=== PATIENT | female | born 1985 | race Caucasian/White ===

== ENCOUNTER → 2017-05-08 11:50 | Emergency (ER) | payer BC, OTHER ==
[~2017-05-08 11:50] MED LIST: Ketorolac INJ* 30 MG/ML 1 ML VIAL IV ONE; Ketorolac INJ* 30 MG/ML 1 ML VIAL ONE; NS 0.9% 1000 ML* 1,000 ML IV ONE
[2017-05-08 14:34] LABS: Hematocrit 38 % (35-47); Hemoglobin 13.2 g/dl (12.0-16.0); Mean Corpuscular HGB Conc 35 g/dl (31-36); Mean Corpuscular Hemoglobin 33 pg (27-31); Mean Corpuscular Volume 96 fL (80-97); Mean Platelet Volume 9 um3 (7.4-10.4); Red Cell Distribution Width 12 % (10.5-15)
[2017-05-08 14:56] LABS: ALT 17 U/L (7-52); AST 18 U/L (13-39); Alkaline Phosphatase 47 U/L (34-104); Anion Gap 8 mmol/L (2-11); BUN/Creatinine Ratio 8.6 (8-20); Blood Urea Nitrogen 7 mg/dL (6-24); CO2 Carbon Dioxide 25 mmol/L (22-32); Calcium 9.3 mg/dL (8.6-10.3); Chloride 103 mmol/L (101-111); EGFR African American 104.7 (>60); EGFR Non-African American 81.4 (>60); Globulin 3.1 g/dL (2-4); Glucose 86 mg/dL (70-100); Magnesium 1.8 mg/dL (1.9-2.7); Sodium 136 mmol/L (133-145); Total Protein 7.1 g/dL (6.4-8.9)
[2017-05-08 15:15] LABS: Manual Entry Verification HAN0055; Mono Internal Control QC Line Present
[2017-05-08 15:34] LABS: TSH (Thyroid Stimulating Horm) 2.28 mcIU/mL (0.34-5.60)
[2017-05-08 15:35] LABS: C Reactive Protein 1.16 mg/L (< 5.00)
[2017-05-08 15:50] LABS: Urine Bilirubin Negative (Negative); Urine Glucose Negative (Negative); Urine Nitrite Negative (Negative)
--- NOTE | 2017-05-08 16:58 | RAD ---
Indication: Left upper quadrant pain. Real-time sonography of the spleen was performed. The spleen is normal in size. No focal lesions are identified. IMPRESSION: Unremarkable spleen.
[2017-05-08 18:01] VITALS: BP 120/73
--- NOTE | 2017-05-09 21:19 | ED ---
Rosa Elena Luna Alok, scribed for Satish Jay MD on 05/08/17 at 1336 . Dizziness - HPI Summary HPI Summary: 31F presents to the ED with dizziness, fatigue, weakness, and a PICHARDO. Pt states that what began as RUQ abd pain 3-4 weeks ago transitioned into left sided abd pain which is still present and accompanied by nausea. Her left sided abd pain is described as dull and comes and goes. Pt also notes experiencing thrush 6 days ago as well as intermittent fevers ongoing since 4 days ago. Her PICHARDO is diffuse and ongoing since 3 days ago, constant yesterday and on and off today. Her dizziness worsens with ambulation and is described as a lightheadedness. Pt notes neck pain, generalized myalgia, forgetfulness/fogginess lately. Pt notes SOB on exertion yesterday and today. Pt denies rash. PMHx includes h/o lyme disease 20 years ago. - History Of Current Complaint Chief Complaint: EDDizziness Stated Complaint: DIZZY / SOB Time Seen by Provider: 05/08/17 13:24 Hx Obtained From: Patient Onset/Duration: Still Present Severity Initially: Moderate Severity Currently: Moderate Character: Lightheaded, Dizzy Aggravating Factor(s): Exertion, Headache Alleviating Factor(s): Nothing Associated Signs And Symptoms: Positive: Nausea, SOB, Unsteady Gait, Fever. Negative: Other: - Rash - Allergies/Home Medications Allergies/Adverse Reactions: Allergies Allergy/AdvReac Type Severity Reaction Status Date / Time Sulfamethoxazole Allergy Severe Hives Verified 05/08/17 11:51 w/Trimethoprim [From Bactrim] Sulfa Antibiotics Allergy Hives/Diff. Verified 05/08/17 11:51 Breathing/I tching Diphenhydramine AdvReac Intermediate ANXIETY/ Verified 05/08/17 11:51 [From Benadryl] RESTLESSNESS Home Medications: Home Medications clonazePAM TAB(*) [KlonoPIN TAB(*)] 1 mg PO BEDTIME PRN 05/08/17 [History Confirmed 05/08/17] traZODone TAB* [Desyrel TAB*] 100 mg PO BEDTIME 05/08/17 [History Confirmed ] PMH/Surg Hx/FS Hx/Imm Hx Endocrine/Hematology History: Denies: Hx Diabetes Respiratory History: Denies: Hx Asthma GI History: Denies: Hx Ulcer Psychiatric History: Reports: Hx Anxiety - Surgical History Surgery Procedure, Year, and Place: exploratory lap (poss uterine cyst but none found) Infectious Disease History: No Infectious Disease History: Reports: History Other Infectious Disease - Lyme at 11 yrs of age Denies: Hx Clostridium Difficile, Hx Hepatitis, Hx Human Immunodeficiency Virus (HIV), Hx of Known/Suspected MRSA, Hx Shingles, Hx Tuberculosis, Hx Known/ Suspected VRE, Hx Known/Suspected VRSA, Traveled Outside the [place] in Last 30 Days - Family History Known Family History: Positive: Other - no reported FMH of myofascial [id number] points Negative: Blood Disorder - no bleeding or clotting disorders - Social History Occupation: Employed Full-time Alcohol Use: Occasionally Substance Use Type: Reports: None Smoking Status (MU): Former Smoker Type: eCigarettes Amount Used/How Often: t Length of Time of Smoking/Using Tobacco: 1 year Have You Smoked in the Last Year: Yes Review of Systems Positive: Fever, Fatigue Positive: Shortness Of Breath Positive: Abdominal Pain, Nausea Positive: Myalgia, Other - neck pain Negative: Rash Neurological: Other - Dizziness Positive: Headache, Weakness All Other Systems Reviewed And Are Negative: Yes Physical Exam Triage Information Reviewed: Yes Vital Signs On Initial Exam: Initial Vitals Temp Pulse Resp BP Pulse Ox 98.7 F 81 18 105/65 100 05/08/17 11:51 05/08/17 11:51 05/08/17 11:51 05/08/17 11:51 05/08/17 11:51 Vital Signs Reviewed: Yes Appearance: Positive: Well-Appearing, No Pain Distress Skin: Positive: Warm, Dry, Pale Head/Face: Positive: Normal Head/Face Inspection Eyes: Positive: Normal ENT: Positive: Normal ENT inspection Neck: Positive: Supple, Nontender Respiratory/Lung Sounds: Positive: Clear to Auscultation, Breath Sounds Present Cardiovascular: Positive: RRR Abdomen Description: Positive: Nontender, Soft Bowel Sounds: Positive: Present Musculoskeletal: Positive: Normal Neurological: Positive: Normal Psychiatric: Positive: Normal, Affect/Mood Appropriate - Yani Coma Scale Coma Scale Total: 15 Diagnostics - Vital Signs Vital Signs Temp Pulse Resp BP Pulse Ox 05/08/17 11:51 98.7 F 81 18 105/65 100 - Laboratory Lab Results: Lab Results 05/08/17 05/08/17 05/08/17 Range/Units 14:21 14:21 14:21 WBC 5.0 (3.5-10.8) 10^3/ul RBC 4.00 (4.0-5.4) 10^6/ul Hgb 13.2 (12.0-16.0) g/dl Hct 38 (35-47) % MCV 96 (80-97) fL MCH 33 H (27-31) pg MCHC 35 (31-36) g/dl RDW 12 (10.5-15) % Plt Count 205 (150-450) 10^3/ul MPV 9 (7.4-10.4) um3 Neut % (Auto) 54.2 (38-83) % Lymph % (Auto) 30.6 (25-47) % [place] % (Auto) 8.7 (1-9) % Eos % (Auto) 5.9 (0-6) % Baso % (Auto) 0.6 (0-2) % Absolute Neuts (auto) 2.7 (1.5-7.7) 10^3/ul Absolute Lymphs (auto) 1.5 (1.0-4.8) 10^3/ul Absolute Monos (auto) 0.4 (0-0.8) 10^3/ul Absolute Eos (auto) 0.3 (0-0.6) 10^3/ul Absolute Basos (auto) 0 (0-0.2) 10^3/ul Absolute Nucleated RBC 0.01 10^3/ul Nucleated RBC % 0.1 Sodium 136 (133-145) mmol/L Potassium 4.0 (3.5-5.0) mmol/L Chloride 103 (101-111) mmol/L Carbon Dioxide 25 (22-32) mmol/L Anion Gap 8 (2-11) mmol/L BUN 7 (6-24) mg/dL Creatinine 0.81 (0.51-0.95) mg/dL Est GFR ( Amer) 104.7 (>60) Est GFR (Non-Af Amer) 81.4 (>60) BUN/Creatinine Ratio 8.6 (8-20) Glucose 86 (70-100) mg/dL Lactic Acid (0.5-2.0) mmol/L Calcium 9.3 (8.6-10.3) mg/dL Magnesium 1.8 L (1.9-2.7) mg/dL Total Bilirubin 0.60 (0.2-1.0) mg/dL AST 18 (13-39) U/L ALT 17 (7-52) U/L Alkaline Phosphatase 47 (34-104) U/L Troponin I 0.00 (<0.04) ng/mL C-Reactive Protein 1.16 (< 5.00) mg/L Total Protein 7.1 (6.4-8.9) g/dL Albumin 4.0 (3.2-5.2) g/dL Globulin 3.1 (2-4) g/dL Albumin/Globulin Ratio 1.3 (1-3) TSH 2.28 (0.34-5.60) mcIU/mL Beta HCG, Quant < 0.60 mIU/mL Urine Color Straw Urine Appearance Clear Urine pH 6 (5-9) Ur Specific [place] 1.005 L (1.010-1.030) Urine Protein Negative (Negative) Urine Ketones Negative (Negative) Urine Blood Negative (Negative) Urine Nitrate Negative (Negative) Urine Bilirubin Negative (Negative) Urine Urobilinogen Negative (Negative) Ur Leukocyte Esterase Negative (Negative) Urine Glucose Negative (Negative) Urine Ascorbic Acid * H (Negative) Monoscreen Positive H (Negative) 05/08/17 Range/Units 14:21 WBC (3.5-10.8) 10^3/ul RBC (4.0-5.4) 10^6/ul Hgb (12.0-16.0) g/dl Hct (35-47) % MCV (80-97) fL MCH (27-31) pg MCHC (31-36) g/dl RDW (10.5-15) % Plt Count (150-450) 10^3/ul MPV (7.4-10.4) um3 Neut % (Auto) (38-83) % Lymph % (Auto) (25-47) % [place] % (Auto) (1-9) % Eos % (Auto) (0-6) % Baso % (Auto) (0-2) % Absolute Neuts (auto) (1.5-7.7) 10^3/ul Absolute Lymphs (auto) (1.0-4.8) 10^3/ul Absolute Monos (auto) (0-0.8) 10^3/ul Absolute Eos (auto) (0-0.6) 10^3/ul Absolute Basos (auto) (0-0.2) 10^3/ul Absolute Nucleated RBC 10^3/ul Nucleated RBC % Sodium (133-145) mmol/L Potassium (3.5-5.0) mmol/L Chloride (101-111) mmol/L Carbon Dioxide (22-32) mmol/L Anion Gap (2-11) mmol/L BUN (6-24) mg/dL Creatinine (0.51-0.95) mg/dL Est GFR ( Amer) (>60) Est GFR (Non-Af Amer) (>60) BUN/Creatinine Ratio (8-20) Glucose (70-100) mg/dL Lactic Acid 0.8 (0.5-2.0) mmol/L Calcium (8.6-10.3) mg/dL Magnesium (1.9-2.7) mg/dL Total Bilirubin (0.2-1.0) mg/dL AST (13-39) U/L ALT (7-52) U/L Alkaline Phosphatase (34-104) U/L Troponin I (<0.04) ng/mL C-Reactive Protein (< 5.00) mg/L Total Protein (6.4-8.9) g/dL Albumin (3.2-5.2) g/dL Globulin (2-4) g/dL Albumin/Globulin Ratio (1-3) TSH (0.34-5.60) mcIU/mL Beta HCG, Quant mIU/mL Urine Color Urine Appearance Urine pH (5-9) Ur Specific [place] (1.010-1.030) Urine Protein (Negative) Urine Ketones (Negative) Urine Blood (Negative) Urine Nitrate (Negative) Urine Bilirubin (Negative) Urine Urobilinogen (Negative) Ur Leukocyte Esterase (Negative) Urine Glucose (Negative) Urine Ascorbic Acid (Negative) Monoscreen (Negative) Result Diagrams: 05/08/17 14:21 05/08/17 14:21 Lab Statement: Any lab studies that have been ordered have been reviewed, and results considered in the medical decision making process. - EKG 1200 Cardiac Rate: Bradycardia - 56 bpm EKG Rhythm: Sinus Bradycardia - Additional Comments Diagnostic Additional Comments: Spleen US - IMPRESSION: Unremarkable Spleen Dizzy Course/Dx - Course Course Of Treatment: Ms. Walsh presented with several C/O over the last 2-3 weeks. Her W/U is negative aside from a positive Monospot. She has had not pharyngeal C/O and has no lymphadenopathy at this time. A [facility] PCR panel has been sent and I will treat her symptomatically for now. - Diagnoses Provider Diagnoses: Mononucleosis Discharge - Discharge Plan Condition: Stable Disposition: HOME Patient Education Materials: Mononucleosis (ED) Forms: *Work Release Referrals: Evy Hoyt MD [Primary Care Provider] - Additional Instructions: Please follow up with your primary care provider The documentation as recorded by the Rosa Elena gallagher Alok accurately reflects the service I personally performed and the decisions made by me, Satish Jay MD.
[2017-05-11 20:43] LABS: B garinii/B afzelii PCR Negative (Negative); B mayonii PCR Negative (Negative)
[2017-05-12 01:28] LABS: B. miyamotoi PCR, B Negative (Negative); Babesia divergens/MO-1 Negative (Negative); Babesia ducani Negative (Negative); Ehrlichia ewingii/canis Negative (Negative)
== END | disposition home or self-care (01) ==
LOC: ED 11:50
DX: B27.90 Infectious mononucleosis, unspecified without complication (principal); R42 Dizziness and giddiness; R11.0 Nausea; R06.02 Shortness of breath; R50.9 Fever, unspecified; R53.83 Other fatigue; Z87.891 Personal history of nicotine dependence; R51 Headache
CPT/HCPCS: 36415; 76705; 80053; 81003; 83605; 83735; 84443; 84484; 84702; 85025; 86140; 86308; 86618; 87476; 87798; 93005; 96374; 99283; J1885

== ENCOUNTER 2017-10-21 10:26 | Emergency (ER) | payer BC ==
[2017-10-21 10:43] VITALS: BP 134/89
--- NOTE | 2017-10-21 11:40 | UC ---
Throat Pain/Nasal Dustin HPI - HPI Summary HPI Summary: Patient presents with an unremarkable past medical history. She presents with complaints of one day onset fever, T-max reported to be 103 at home, sore throat , generalized fatigue and malaise. She denies any chest pain, abdominal pain, nausea, vomiting, diarrhea, joint pain or rashes. She works at [employer] and dies have contact with patient who are ill. - History of Current Complaint Chief Complaint: UCGeneralIllness Stated Complaint: FEVER, SORE THROAT Time Seen by Provider: 10/21/17 11:12 Hx Obtained From: Patient Hx Last Menstrual Period: IUD Onset/Duration: Sudden Onset, Lasting Days Cough: Nonproductive Associated Signs & Symptoms: Positive: Nasal Discharge, Fever - Epiglottits Risk Factors Epiglottis Risk Factors: Negative - Allergies/Home Medications Allergies/Adverse Reactions: Allergies Allergy/AdvReac Type Severity Reaction Status Date / Time Sulfamethoxazole Allergy Severe Hives Verified 10/21/17 10:44 w/Trimethoprim [From Bactrim] Sulfa Antibiotics Allergy Hives/Diff. Verified 10/21/17 10:44 Breathing/I tching Tramadol Allergy Hallucinati Verified 10/21/17 10:44 ons Diphenhydramine AdvReac Intermediate ANXIETY/ Verified 10/21/17 10:44 [From Benadryl] RESTLESSNESS Home Medications: Home Medications Atovaquone/Proguanil (NF) [Malarone (NF)] 1 tab PO BID 10/21/17 [History Confirmed 10/21/17] Clonidine HCl [Catapres 0.1 MG TAB] 1 tab PO BEDTIME PRN 10/21/17 [History Confirmed 10/21/17] Doxycycline Hyclate [Morgidox [id number]] 100 mg PO BID 10/21/17 [History Confirmed 10/21/17] Magnesium Oxide 1 tab PO BID 10/21/17 [History Confirmed 10/21/17] Metoclopramide TAB* [Reglan TAB*] 10 mg PO DAILY 10/21/17 [History Confirmed ] Ranitidine HCl [Zantac 150 Maximum Streng] 150 mg PO DAILY 10/21/17 [History Confirmed 10/21/17] Topiramate TAB(*) [Topamax 25 MG tab] 25 mg PO DAILY 12/28/17 [History Confirmed 10/21/17] PMH/Surg Hx/FS Hx/Imm Hx Previously Healthy: Yes Psychological History: Depression - Surgical History Surgical History: Yes Surgery Procedure, Year, and Place: Exlap for oviarian cyst. - Family History Known Family History: Positive: Cardiac Disease, Hypertension, Other Negative: Blood Disorder - no bleeding or clotting disorders Family History: stroke - Social History Occupation: Employed Full-time Lives: Alone Alcohol Use: Occasionally Substance Use Type: None Smoking Status (MU): Never Smoked Tobacco Type: eCigarettes Amount Used/How Often: t Length of Time of Smoking/Using Tobacco: 1 year Have You Smoked in the Last Year: Yes When Did the Patient Quit Smoking/Using Tobacco: 02/18/15 - Immunization History Most Recent Influenza Vaccination: Fall 2016 Most Recent Tetanus Shot: 2012 Most Recent Pneumonia Vaccination: na Review of Systems Constitutional: Fever, Fatigue Skin: Negative Eyes: Negative ENT: Sore Throat Respiratory: Negative Cardiovascular: Negative Gastrointestinal: Negative Genitourinary: Negative Motor: Negative Neurovascular: Negative Musculoskeletal: Arthralgia, Myalgia Neurological: Negative Psychological: Negative Is Patient Immunocompromised?: No All Other Systems Reviewed And Are Negative: Yes Physical Exam Triage Information Reviewed: Yes Appearance: Ill-Appearing Vital Signs: Initial Vital Signs Temp 98.6 F 10/21/17 10:40 Pulse 92 10/21/17 10:40 Resp 18 10/21/17 10:40 BP 134/89 10/21/17 10:40 Pulse Ox 100 10/21/17 10:40 Vital Signs Reviewed: Yes Eye Exam: Normal ENT: Positive: Pharyngeal erythema Neck exam: Normal Neck: Positive: 1 Respiratory: Positive: Normal breath sounds, No respiratory distress, No accessory muscle use Cardiovascular Exam: Normal Cardiovascular: Positive: RRR, No Murmur Abdominal Exam: Normal Musculoskeletal Exam: Normal Skin Exam: Normal Throat Pain/Nasal Course/Dx - Course Course Of Treatment: Patient prersents with complaints of fever, sore throat. Raped strep and influenza were negative. And currently the patient has normal vital signs, and nontoxic appearance. She was taken out of work and will be treated conservativly. - Differential Dx/Diagnosis Differential Diagnosis/HQI/PQRI: URI, Other - viral syndrome Provider Diagnoses: viral syndrome. uri Discharge - Discharge Plan Condition: Stable Disposition: HOME Patient Education Materials: Viral Syndrome (ED) Forms: *Work Release Referrals: Ayde Kamara MD [Primary Care Provider] -
== END 2017-10-21 11:51 | disposition home or self-care (01) ==
LOC: UCEAST 10:26
DX: J06.9 Acute upper respiratory infection, unspecified (principal); B34.9 Viral infection, unspecified; Z88.5 Allergy status to narcotic agent; Z88.2 Allergy status to sulfonamides; Z88.8 Allergy status to other drugs, medicaments and biological substances; Z87.891 Personal history of nicotine dependence
CPT/HCPCS: 87502; 87651; 99211; G0463

== ENCOUNTER 2017-12-19 11:42 | Emergency (ER) | payer OTHER, BC ==
[2017-12-19 12:40] VITALS: BP 127/65
--- NOTE | 2017-12-19 14:27 | UC ---
UC General HPI - HPI Summary HPI Summary: Has been on rocephin since 11/29 intravenously for treatment of Lyme disease. Developed loose stools about 6 days ago, up to 6 stools per day no blood, no fever, developed low abdominal cramping in the past 2 days. Took imodium tomorrow with some response, none today - History of Current Complaint Chief Complaint: UCGI Stated Complaint: DIARRHEA *2WEEKS Time Seen by Provider: 12/19/17 14:16 Hx Obtained From: Patient Hx Last Menstrual Period: unknown Onset/Duration: Gradual Onset, Lasting Days Timing: Intermittent Episodes Lasting: - minutes. Onset Severity: Moderate Pain Intensity: 3 Associated Signs & Symptoms: Positive: Abdominal Pain - crapming - Allergy/Home Medications Allergies/Adverse Reactions: Allergies Allergy/AdvReac Type Severity Reaction Status Date / Time diphenhydramine Allergy Anxiety Verified 12/19/17 12:23 [From Benadryl] Sulfa (Sulfonamide Allergy Hives/Diff. Verified 12/19/17 12:23 Antibiotics) Breathing/I tching sulfamethoxazole Allergy Hives Verified 12/19/17 12:23 [From Bactrim] tramadol Allergy Hallucinati Verified 12/19/17 12:23 ons trimethoprim [From Bactrim] Allergy Hives Verified 12/19/17 12:23 chlorhexidine AdvReac Itching Verified 12/19/17 12:32 Home Medications: Home Medications Fish Oil/Borage/Flax/Om3,6,9 1 [[place] 3-6-9 1,200 mg Softgel] 2,400 mg PO DAILY 12/19/17 [History Confirmed 12/19/17] Levonorgestrel (Iud) [Mirena IUD] 20 mcg IU ONCE 12/19/17 [History Confirmed ] Multivitamin [Multivitamins] 1 cap PO DAILY 12/19/17 [History Confirmed 12/19/17 ] Ondansetron HCl [Zofran 4 MG TAB] 4 mg PO Q4H PRN 12/19/17 [History Confirmed ] SUMAtriptan succinate [Imitrex] 100 mg PO SEE INSTRUCTIONS PRN 12/19/17 [ History Confirmed 12/19/17] Vitamin A/Vit C/Zinc/Propolis [Zinc 15 mg Lozenges] 15 mg PO DAILY 12/19/17 [ History Confirmed 12/19/17] Vitamin B Complex CAP* [B Complex CAP*] 1 cap PO DAILY 12/19/17 [History Confirmed 12/19/17] Vitamin E 300 unit PO DAILY 12/19/17 [History Confirmed 12/19/17] cefTRIAXone VIAL(*) [Rocephin VIAL(*)] 2 gm IV Q24H 12/19/17 [History Confirmed 12/19/17] hydrOXYzine HCL TAB* [Atarax 25 MG TAB*] 30 mg PO QID PRN 12/19/17 [History Confirmed 12/19/17] PMH/Surg Hx/FS Hx/Imm Hx Previously Healthy: No - Lyme disease being treated since July 2017 Psychological History: Anxiety, Depression - Surgical History Surgical History: Yes Surgery Procedure, Year, and Place: Exlap for oviarian cyst. - Family History Known Family History: Positive: Cardiac Disease, Hypertension, Other Negative: Blood Disorder - no bleeding or clotting disorders Family History: stroke - Social History Occupation: Employed Full-time - currently partially disabled, working supervisor finishing department. ICU nurse, now doing EMS work Alcohol Use: Occasionally Substance Use Type: None Smoking Status (MU): Former Smoker Type: eCigarettes Amount Used/How Often: t Length of Time of Smoking/Using Tobacco: 1 year Have You Smoked in the Last Year: Yes When Did the Patient Quit Smoking/Using Tobacco: 02/18/15 - Immunization History Most Recent Influenza Vaccination: Fall 2016 Most Recent Tetanus Shot: 2012 Most Recent Pneumonia Vaccination: na Review of Systems Constitutional: Fatigue Skin: Negative Eyes: Negative ENT: Negative Respiratory: Negative Cardiovascular: Negative Gastrointestinal: Diarrhea Genitourinary: Negative Motor: Negative Neurovascular: Negative Musculoskeletal: Arthralgia - knees Neurological: Negative Psychological: Negative Is Patient Immunocompromised?: No All Other Systems Reviewed And Are Negative: Yes Physical Exam Triage Information Reviewed: Yes Appearance: Ill-Appearing - looks pale and mildly unwell Vital Signs: Initial Vital Signs Temp 99.2 F 12/19/17 12:33 Pulse 73 12/19/17 12:33 Resp 20 12/19/17 12:33 BP 127/65 12/19/17 12:33 Pulse Ox 100 12/19/17 12:33 Eyes: Positive: Conjunctiva Clear ENT: Positive: Pharynx normal Neck: Positive: Supple, Nontender, No Lymphadenopathy Respiratory: Positive: Lungs clear, Normal breath sounds Cardiovascular: Positive: RRR, No Murmur Abdomen Description: Positive: Nontender, No Organomegaly, Soft Bowel Sounds: Positive: Present Musculoskeletal Exam: Normal Neurological Exam: Normal Psychological Exam: Normal Skin Exam: Normal Course/Dx - Course Course Of Treatment: imodium to be used for loose stool pending results of samples. Given number of meds she is taking, suggested holding off on empiric therapy - Differential Dx - Multi-Symptom Provider Diagnoses: diarrhea, high risk for C. diff. Discharge - Discharge Plan Condition: Stable Disposition: HOME Patient Education Materials: Acute Diarrhea (ED) Referrals: Ayde Kamara MD [Primary Care Provider] - Additional Instructions: The results of the C. diff test should be available by tomorrow afternoon. You will be called if positive. Continue use of imodium to the number of stools, and ensure high intake of fluids. Avoid high fiber and fatty foods which might worsen your symptoms.
--- NOTE | 2017-12-20 14:25 | ED ---
Progress - Progress Note Progress Note: The patient should go to the hospital ER for full labs, and evaluation, and further consultation including ID since she is on Rocephin for LYme and now has c diff colitis, and on many medication and other medical conditions. Course/Dx - Course Course Of Treatment: imodium to be used for loose stool pending results of samples. Given number of meds she is taking, suggested holding off on empiric therapy
== END 2017-12-19 15:05 | disposition home or self-care (01) ==
LOC: UCCORT 11:42
DX: A04.72 Enterocolitis due to Clostridium difficile, not specified as recurrent (principal); A69.20 Lyme disease, unspecified; Z88.1 Allergy status to other antibiotic agents; Z88.8 Allergy status to other drugs, medicaments and biological substances; F41.8 Other specified anxiety disorders; Z87.891 Personal history of nicotine dependence
CPT/HCPCS: 87045; 87046; 87328; 87329; 87493; 87899; 99212; G0463

== ENCOUNTER 2019-01-11 18:40 | Emergency (ER) | payer BC ==
[2019-01-11 19:17] VITALS: BP 131/70
--- NOTE | 2019-01-11 19:56 | UC ---
Throat Pain/Nasal Dustin HPI - HPI Summary HPI Summary: 33 yo female with sore throat/fatigue/severe myalgias and arthralgis x 24 hours mild runny nose and cough Had influenza A about 2 mos ago no CP or SOB - History of Current Complaint Chief Complaint: UCGeneralIllness Stated Complaint: ST,FATIGUE,WEAKNESS Time Seen by Provider: 01/11/19 19:16 Hx Obtained From: Patient Hx Last Menstrual Period: 12/31/18 Onset/Duration: Gradual Onset, Lasting Hours Severity: Moderate Pain Intensity: 6 Pain Scale Used: 0-10 Numeric Cough: Nonproductive - Epiglottits Risk Factors Epiglottis Risk Factors: Negative - Allergies/Home Medications Allergies/Adverse Reactions: Allergies Allergy/AdvReac Type Severity Reaction Status Date / Time Sulfa (Sulfonamide Allergy Severe Hives/Diff. Verified 01/11/19 19:20 Antibiotics) Breathing/I tching sulfamethoxazole Allergy Severe Hives Verified 01/11/19 19:20 [From Bactrim] trimethoprim [From Bactrim] Allergy Severe Hives Verified 01/11/19 19:20 diphenhydramine AdvReac Intermediate Anxiety Verified 01/11/19 19:20 [From Benadryl] chlorhexidine AdvReac Mild Itching Verified 01/11/19 19:20 trazodone AdvReac auditory Verified 01/11/19 19:20 hallucinations Home Medications: Home Medications Vitamin TAB* 1 tab PO DAILY 01/11/19 [History Confirmed 01/11/19] metFORMIN* [Glucophage 500 MG TAB *] 500 mg PO BID 01/11/19 [History Confirmed 01/11/19] PMH/Surg Hx/FS Hx/Imm Hx - Additional Past Medical History Additional PMH: hx MONO, hx LYME DISEASE Previously Healthy: Yes Cardiovascular History: Hypertension - Surgical History Surgical History: Yes Surgery Procedure, Year, and Place: lap for oviarian cyst. - Family History Known Family History: Positive: Cardiac Disease, Hypertension, Other Negative: Blood Disorder - no bleeding or clotting disorders Family History: stroke - Social History Alcohol Use: Occasionally Substance Use Type: None Smoking Status (MU): Former Smoker Type: eCigarettes Amount Used/How Often: t Length of Time of Smoking/Using Tobacco: 1 year Have You Smoked in the Last Year: Yes When Did the Patient Quit Smoking/Using Tobacco: 02/18/15 - Immunization History Most Recent Influenza Vaccination: Fall 2016 Most Recent Tetanus Shot: 2012 Most Recent Pneumonia Vaccination: na Review of Systems All Other Systems Reviewed And Are Negative: Yes Constitutional: Positive: Fever, Chills, Fatigue Skin: Positive: Negative Eyes: Positive: Negative ENT: Positive: Sore Throat, Nasal Discharge, Sinus Congestion Respiratory: Positive: Cough Cardiovascular: Positive: Negative Gastrointestinal: Positive: Nausea Genitourinary: Positive: Negative Motor: Positive: Negative Neurovascular: Positive: Negative Musculoskeletal: Positive: Negative Neurological: Positive: Negative Psychological: Positive: Negative Physical Exam Triage Information Reviewed: Yes Appearance: Well-Appearing, No Pain Distress, Well-Nourished Vital Signs: Initial Vital Signs Temp 98.6 F 01/11/19 19:13 Pulse 83 01/11/19 19:13 Resp 16 01/11/19 19:13 BP 131/70 01/11/19 19:13 Pulse Ox 100 01/11/19 19:13 Vital Signs Reviewed: Yes Eyes: Positive: Conjunctiva Clear ENT: Positive: Hearing grossly normal, Pharyngeal erythema, Nasal congestion, Nasal drainage, Tonsillar swelling, Uvula midline. Negative: Tonsillar exudate , Trismus, Muffled voice, Hoarse voice, Sinus tenderness Neck: Positive: Supple, Nontender, Enlarged Nodes @ - ant and post adenopathy Respiratory: Positive: Lungs clear, Normal breath sounds, No respiratory distress, No accessory muscle use Cardiovascular: Positive: RRR, No Murmur Musculoskeletal: Positive: ROM Intact, No Edema Neurological: Positive: Alert Psychological Exam: Normal Skin Exam: Normal Throat Pain/Nasal Course/Dx - Course Course Of Treatment: strep (-) influenza (-) - Differential Dx/Diagnosis Provider Diagnosis: Viral syndrome Discharge - Sign-Out/Discharge Documenting (check all that apply): Patient Departure All imaging exams completed and their final reports reviewed: No Studies - Discharge Plan Condition: Stable Disposition: HOME Patient Education Materials: Viral Syndrome (ED) Forms: *School Release Referrals: Sierra Osborne NP [Primary Care Provider] - 2 Days Additional Instructions: rest fluids tylenol or advil recheck for new or worsening symptoms - Billing Disposition and Condition Condition: STABLE Disposition: Home
[2019-01-11 19:57] LABS: Influenza A Molecular NEGATIVE (Negative); Influenza B Molecular NEGATIVE (Negative)
== END 2019-01-11 20:08 | disposition home or self-care (01) ==
LOC: UCCORT 18:40
DX: B34.9 Viral infection, unspecified (principal); Z88.2 Allergy status to sulfonamides; Z88.1 Allergy status to other antibiotic agents; Z88.8 Allergy status to other drugs, medicaments and biological substances; I10 Essential (primary) hypertension; Z87.891 Personal history of nicotine dependence
CPT/HCPCS: 87651; 99211; G0463

== ENCOUNTER 2019-07-19 01:31 | Emergency (ER) | payer BC ==
[2019-07-19] MEDS ORDERED: NS 0.9% 1000 ML** 1,000 ML IV ONE (02:05)
--- NOTE | 2019-07-19 02:05 | ED ---
Back Pain - HPI Summary HPI Summary: 34 year old F presenting to [facility] accompanied by complains of lower back pain rated 9/10 in severity radiating to the front of her abdomen that started while patient was at work yesterday at 20:00. Patient states she feels tightness in her abdomen. Patient states she has never felt tightness in her abdomen or back pain. Patient reports nausea. Denies fever, vomiting, diarrhea, dysuria, vaginal discharge, vaginal bleeding. Symptoms aggravated by nothing. Symptoms alleviated by nothing. Patient has treated the pain with Tylenol without relief. Patient states she is 24 weeks . Patient states she had an ultrasound done when she was 4-5 weeks . Patient states she is due in November 04, 2019. LNMP 01/26/19. /A1. Patient states she called her serging machine operator yesterday who referred patient to ED if symptoms worsen. - History of Current Complaint Chief Complaint: EDOBProblems Stated Complaint: 24 WEEKS , PAIN PER PT Time Seen by Provider: 07/19/19 01:56 Hx Obtained From: Patient Hx Last Menstrual Period: 01/26/19 Onset/Duration: Lasting Hours - 6, Still Present Onset/Duration: Started Hours Ago - 6, Still Present Severity Currently: Severe Pain Intensity: 9 Pain Scale Used: 0-10 Numeric Aggravating Symptom(s): Nothing Alleviating Symptom(s): Nothing Associated Signs And Symptoms: Positive: Negative - fever, vomiting, diarrhea, dysuria, vaginal discharge, vaginal bleeding, Other - nausea - Allergies/Home Medications Allergies/Adverse Reactions: Allergies Allergy/AdvReac Type Severity Reaction Status Date / Time Sulfa (Sulfonamide Allergy Severe Hives/Diff. Verified 07/19/19 01:35 Antibiotics) Breathing/I tching sulfamethoxazole Allergy Severe Hives Verified 07/19/19 01:35 [From Bactrim] trimethoprim [From Bactrim] Allergy Severe Hives Verified 07/19/19 01:35 diphenhydramine AdvReac Intermediate Anxiety Verified 07/19/19 01:35 [From Benadryl] trazodone AdvReac auditory Verified 07/19/19 01:35 hallucinations Home Medications: Home Medications Aspirin [Aspirin EC] 81 mg PO DAILY 07/19/19 [History Confirmed 07/19/19] Cetirizine HCl [Zyrtec] 10 mg PO DAILY 07/19/19 [History Confirmed 07/19/19] Docusate Sodium [Colace] 100 mg PO DAILY 07/19/19 [History Confirmed 07/19/19] PMH/Surg Hx/FS Hx/Imm Hx Endocrine/Hematology History: Denies: Hx Diabetes Cardiovascular History: Denies: Hx Coronary Artery Disease, Hx Hypertension Respiratory History: Denies: Hx Asthma GI History: Denies: Hx Ulcer Psychiatric History: Reports: Hx Anxiety - Surgical History Surgery Procedure, Year, and Place: lap for oviarian cyst. Infectious Disease History: No Infectious Disease History: Reports: History Other Infectious Disease - Lyme at 11 yrs of age Denies: Hx Clostridium Difficile, Hx Hepatitis, Hx Human Immunodeficiency Virus (HIV), Hx of Known/Suspected MRSA, Hx Shingles, Hx Tuberculosis, Hx Known/ Suspected VRE, Hx Known/Suspected VRSA, Traveled Outside the [place] in Last 30 Days - Family History Known Family History: Positive: Cardiac Disease, Hypertension, Other Negative: Blood Disorder - no bleeding or clotting disorders Family History: stroke - Social History Alcohol Use: None Hx Substance Use: No Substance Use Type: Reports: None Hx Tobacco Use: Yes Smoking Status (MU): Former Smoker Type: eCigarettes Amount Used/How Often: t Length of Time of Smoking/Using Tobacco: 1 year Have You Smoked in the Last Year: Yes Review of Systems - ROS Summary Review of Systems Summary: Home Medications Medication Instructions Recorded Confirmed Type Vitamin TAB* 1 tab PO DAILY 01/11/19 07/19/19 History Aspirin [Aspirin EC] 81 mg PO DAILY 07/19/19 07/19/19 History Cetirizine HCl [Zyrtec] 10 mg PO DAILY 07/19/19 07/19/19 History Docusate Sodium [Colace] 100 mg PO DAILY 07/19/19 07/19/19 History Negative: Fever Positive: Nausea. Negative: Vomiting, Diarrhea Negative: dysuria, discharge, other - vaginal bleeding Positive: Other - low back pain All Other Systems Reviewed And Are Negative: Yes Physical Exam - Summary Physical Exam Summary: General: Well-developed, Well-nourished FEMALE. No acute distress. HEENT: Normocephalic, Atraumatic. Eyes: Conjuctiva normal, PERRL. Ears: TMs within normal limits. Nares: (-) discharge, (-) erythema. Oropharynx: Clear, mucous membranes moist, (-) exudates. Neck: Soft, FROM, (-) lymphadenopathy, (-) thyromegaly, (-) JVD. Cardiovascular: Normal sinus rhythm, (-) murmur. Lungs: Clear to auscultation bilaterally (-) wheezes, (-) rales, (-) rhonchi. Abdomen: gravid abdomen, fundus is above her umbilicus, abdomen is soft and non- tender Back: (-) CVA tenderness, back is non-tender Extremities: No edema. Skin: Warm, dry, (-) rash. Neuro: Alert and oriented x3, no focal deficits. Psychiatric: Mood normal, affect normal. Triage Information Reviewed: Yes Vital Signs On Initial Exam: Initial Vitals Temp Pulse Resp BP Pulse Ox 98.7 F 95 16 157/86 97 07/19/19 01:33 07/19/19 01:33 07/19/19 01:33 07/19/19 01:33 07/19/19 01:33 Vital Signs Reviewed: Yes Diagnostics - Vital Signs Vital Signs Temp Pulse Resp BP Pulse Ox 07/19/19 01:33 98.7 F 95 16 157/86 97 - Laboratory Result Diagrams: 07/19/19 02:15 07/19/19 02:15 Lab Statement: Any lab studies that have been ordered have been reviewed, and results considered in the medical decision making process. Re-Evaluation - Re-Evaluation First Eval Re-Evaluation Time: 02:30 Comment: heart rate 150 BPM per OB nurse Second Eval Re-Evaluation Time: 02:37 Comment: aware of lactic acid 2.2 Third Eval Re-Evaluation Time: 03:23 Comment: I have discussed results with the patient and symptoms have resolved. Discussed symptoms that warrant immediate return to ED. Fourth Eval Re-Evaluation Time: 03:50 Comment: patient feels uncomfortable being discharged home Fifth Eval Re-Evaluation Time: 04:40 Comment: OB nurse in ED to monitor patient Back Pain Course/Dx - Course Course Of Treatment: 34 year old F presenting to [facility] accompanied by complains of lower back pain rated 9/10 in severity radiating to the front of her abdomen that started while patient was at work yesterday at 20:00. Patient states she feels tightness in her abdomen. Patient reports nausea. Denies fever , vomiting, diarrhea, dysuria, vaginal discharge, vaginal bleeding.Patient states she is 24 weeks . /A1. Physical exam findings: gravid abdomen, fundus is above her umbilicus, abdomen is soft and non-tender, back is non-tender, no edema. Bloodwork results with no significant abnormalities except for RBC 3.45, Hgb 10.6, Hct 31, creatinine 0.44, lactic acid 2.2, calcium 8.4. Urinalysis results with no significant abnormalities except for specific gravity 1.001. In the ED course, the patient was given normal saline fluids 1 L IV and acetaminophen [address] Correa, OBGYN, states it sounds like mechanical low back pain and not contractions. He states that patient can be discharge home and follow up with OBGYN. The patient will be discharged home with follow up from her OBGYN in 3 days. Patient was instructed to return to Emergency Department for new or worsening symptoms. Patient understands and is agreeable to this plan. - Diagnoses Provider Diagnoses: Low back pain - Provider Notifications Discussed Care Of Patient With: René Correa Time Discussed With Above Provider: 03:20 Instructed by Provider To: Other - Dr. Correa OBGYN, states it sounds like mechanical low back pain and not contractions. He states that patient can be discharge home and follow up with OBGYN. Spoke with OBGYN at 04:18 who state that they will send OBGYN nurse down to ED to monitor patient. Discharge ED - Sign-Out/Discharge Documenting (check all that apply): Patient Departure - Discharge Patient Received Moderate/Deep Sedation with Procedure: No - Discharge Plan Condition: Stable Disposition: HOME Patient Education Materials: Back Pain (ED) Forms: *Work Release Referrals: [facility] [Provider Group] - 3 Days Additional Instructions: Please follow up with your OBGYN within 3 days. Please return to Emergency Department for any new or worsening symptoms. - Billing Disposition and Condition Condition: STABLE Disposition: Home - Attestation Statements Document Initiated by Scribe: Yes Documenting Scribe: Evon Santacruz Provider For Whom Scribe is Documenting (Include Credential): Poly Benitez MD Scribe Attestation: IEvon, scribed for Poly Benitez MD on 07/19/19 at 0557. Scribe Documentation Reviewed: Yes Provider Attestation: The documentation as recorded by the scribe, Evon Santacruz accurately reflects the service I personally performed and the decisions made by me, Poly Benitez MD Status of Scribe Document: Viewed
[2019-07-19 02:13] LABS: Urine Appearance Clear; Urine Bilirubin Negative (Negative); Urine Blood Negative (Negative); Urine Color Colorless; Urine Glucose Negative (Negative); Urine Ketones Negative (Negative); Urine Nitrite Negative (Negative); Urine Protein Negative (Negative); Urine Specific Gravity 1.001 (1.010-1.030); Urine Urobilinogen Negative (Negative)
[2019-07-19 02:23] LABS: ABS Eosinophils 0.1 10^3/ul (0-0.6); ABS Lymphocytes 1.3 10^3/ul (1.0-4.8); ABS Monocytes 0.6 10^3/ul (0-0.8); ABS Neutrophils 6.1 10^3/ul (1.5-7.7); Eosinophil % 1.5 %; Hematocrit 31 % (35-47); Hemoglobin 10.6 g/dL (12.0-16.0); Mean Corpuscular HGB Conc 34 g/dL (31-36); Mean Corpuscular Hemoglobin 31 pg (27-31); Mean Corpuscular Volume 89 fL (80-97); Mean Platelet Volume 8.6 fL (7.4-10.4); Platelet Count 199 10^3/uL (150-450); Red Blood Count 3.45 10^6 /uL (3.70-4.87); Red Cell Distribution Width 13 % (10-15); White Blood Count 8.2 10^3/uL (3.5-10.8)
[2019-07-19 02:38] LABS: INR 0.97 (0.82-1.09)
[2019-07-19 02:39] LABS: Albumin 3.3 g/dL (3.2-5.2); Albumin/Globulin Ratio 1.1 (1-3); BUN/Creatinine Ratio 13.6 (8-20); Calcium 8.4 mg/dL (8.6-10.3); EGFR African American 195.8 (>60); EGFR Non-African American 161.8 (>60); Globulin 3.1 g/dL (2-4); Potassium 3.6 mmol/L (3.5-5.0); Total Bilirubin 0.2 mg/dL (0.2-1.0); Total Protein 6.4 g/dL (6.4-8.9)
[2019-07-19] MEDS ORDERED: Acetaminophen TAB* 325 MG PO ONE (02:43)
[2019-07-19 05:51] VITALS: BP 113/67
== END 2019-07-19 05:50 | disposition home or self-care (01) ==
LOC: ED 01:31
DX: M54.5 Low back pain (principal); Z79.82 Long term (current) use of aspirin; Z79.899 Other long term (current) drug therapy; F41.9 Anxiety disorder, unspecified; Z88.1 Allergy status to other antibiotic agents; Z88.2 Allergy status to sulfonamides; Z88.8 Allergy status to other drugs, medicaments and biological substances
CPT/HCPCS: 36415; 80053; 81003; 83605; 85025; 85610; 96360; 96361; 99283; A9270-GY

== ENCOUNTER 2019-10-14 07:57 | Inpatient (IN) | payer BC ==
[2019-10-14] MEDS ORDERED: Lactated Ringers 1000 ML Bag* 1,000 ML IV ONE (08:39)
[2019-10-14] MEDS ORDERED: Dinoprostone* 10 MG VAG.SUPP VAGINAL ONE (08:39)
[2019-10-14] MEDS ORDERED: Buffered Lidocaine 1% SYRIN* 1 ML/SYRINGE INTRADERM ONE (08:39)
[2019-10-14] MEDS ORDERED: Lactated Ringers 1000 ML Bag* 1,000 ML IV SCH (09:00)
[2019-10-14 10:30] LABS: ABS Basophils 0.1 10^3/ul (0-0.2); ABS Eosinophils 0.2 10^3/ul (0-0.6); ABS Lymphocytes 1.8 10^3/ul (1.0-4.8); ABS Monocytes 0.7 10^3/ul (0-0.8); ABS Neutrophils 7.5 10^3/ul (1.5-7.7); Eosinophil % 1.7 %; Hematocrit 31 % (35-47); Hemoglobin 10.3 g/dL (12.0-16.0); Lymphocyte % 17.7 %; Mean Corpuscular HGB Conc 34 g/dL (31-36); Mean Corpuscular Hemoglobin 27 pg (27-31); Mean Corpuscular Volume 80 fL (80-97); Mean Platelet Volume 8.6 fL (7.4-10.4); Platelet Count 242 10^3/uL (150-450); Red Blood Count 3.83 10^6 /uL (3.70-4.87); Red Cell Distribution Width 16 % (10-15); White Blood Count 10.3 10^3/uL (3.5-10.8)
[2019-10-14 10:50] LABS: Albumin 3.3 g/dL (3.2-5.2); Albumin/Globulin Ratio 0.9 (1-3); BUN/Creatinine Ratio 14.3 (8-20); Calcium 9.1 mg/dL (8.6-10.3); EGFR African American 172.9 (>60); EGFR Non-African American 142.9 (>60); Globulin 3.5 g/dL (2-4); Potassium 3.8 mmol/L (3.5-5.0); Total Bilirubin 0.3 mg/dL (0.2-1.0); Total Protein 6.8 g/dL (6.4-8.9); Uric Acid 3.6 mg/dL (2.3-6.6)
[2019-10-14 11:00] LABS: Urine Benzodiazepine Screen None Detected (None Detect); Urine Opiates Screen None Detected (None Detect)
[2019-10-14] MEDS: Morphine INJ* 2 MG/ML 1 ML SYRINGE (TWO MG - NEW SYRINGE VERSION) IV PRN ×2 (11:47→21:53)
[2019-10-14] MEDS: Promethazine INJ(RESTRICTED)* 25 MG/ML 1 ML VIAL IV PRN ×2 (11:47→21:53)
--- NOTE | 2019-10-14 12:14 | HP ---
General Information - Reason for Visit IOL secondary to mild PreEclampsia - General Information Maternal Age: 34 Grav: 3 Para: 1 SAB: 1 IEA: 0 Estimated Due Date: 11/04/18 Determined By: Early Ultrasound Gestational Age in Weeks/Days: 37w0d Maternal Blood Type and Rh: B Positive - Results this Serology/RPR Result: Non-Reactive Rubella Result: Immune HBsAg Result: Negative HIV Result: Negative GBS Culture Result: Negative Past Medical History Delivery History: Hx Complicated Vaginal Delivery - PreEclampsia with G1, See Records Pertinent Past Medical History: See Records Pertinent Past Surgical History: See Records Pertinent Family History: See Records - Antepartal Records Antepartal Records: Reviewed, Complicated by: - PreEclampsia WITHOUT SF Review of Systems Constitutional: Comfortable CV Complaint: No Respiratory: Shortness of Breath: No Gastrointestinal: No Nausea/Vomiting, Normal Bowel Movement Genitourinary: No Dysuria, No Bleeding, No Leaking Fluid Musculoskeletal: No Complaint, No Epigastric Pain Neurological: No Headache, No Visual Changes Movement: Normal Exam Allergies/Adverse Reactions: Allergies Sulfa (Sulfonamide Antibiotics) Allergy (Severe, Verified 07/19/19 01:35) Hives/Diff.Breathing/Itching sulfamethoxazole [From Bactrim] Allergy (Severe, Verified 07/19/19 01:35) Hives trimethoprim [From Bactrim] Allergy (Severe, Verified 07/19/19 01:35) Hives diphenhydramine [From Benadryl] Adverse Reaction (Intermediate, Verified 01:35) Anxiety trazodone Adverse Reaction (Verified 07/19/19 01:35) auditory hallucinations Vital Signs 10/14/19 11:47 Respiratory 22 Rate Lab Values - Entire Visit: Laboratory Tests 10/14/19 10/14/19 10/14/19 10:08 10:08 10:08 WBC RBC Hgb Hct MCV MCH MCHC RDW Plt Count MPV Neut % (Auto) Lymph % (Auto) Carlton % (Auto) Eos % (Auto) Baso % (Auto) Absolute Neuts (auto) Absolute Lymphs (auto) Absolute Monos (auto) Absolute Eos (auto) Absolute Basos (auto) Absolute Nucleated RBC Nucleated RBC % Sodium 136 Potassium 3.8 Chloride 106 Carbon Dioxide 20 L Anion Gap 10 BUN 7 Creatinine 0.49 L Est GFR ( Amer) 172.9 Est GFR (Non-Af Amer) 142.9 BUN/Creatinine Ratio 14.3 Glucose 88 Uric Acid 3.6 Calcium 9.1 Total Bilirubin 0.30 AST 20 ALT 13 Alkaline Phosphatase 163 H Total Protein 6.8 Albumin 3.3 Globulin 3.5 Albumin/Globulin Ratio 0.9 L Urine Opiates Screen None detected Ur Barbiturates Screen None detected Ur Phencyclidine Scrn None detected Ur Amphetamines Screen None detected U Benzodiazepines Scrn None detected Urine Cocaine Screen None detected U Cannabinoids Screen None detected Blood Type B Positive Antibody Screen Negative 10/14/19 10:08 WBC 10.3 RBC 3.83 Hgb 10.3 L Hct 31 L MCV 80 MCH 27 MCHC 34 RDW 16 H Plt Count 242 MPV 8.6 Neut % (Auto) 72.7 Lymph % (Auto) 17.7 Carlton % (Auto) 7.3 Eos % (Auto) 1.7 Baso % (Auto) 0.6 Absolute Neuts (auto) 7.5 Absolute Lymphs (auto) 1.8 Absolute Monos (auto) 0.7 Absolute Eos (auto) 0.2 Absolute Basos (auto) 0.1 Absolute Nucleated RBC 0.0 Nucleated RBC % 0.0 Sodium Potassium Chloride Carbon Dioxide Anion Gap BUN Creatinine Est GFR ( Amer) Est GFR (Non-Af Amer) BUN/Creatinine Ratio Glucose Uric Acid Calcium Total Bilirubin AST ALT Alkaline Phosphatase Total Protein Albumin Globulin Albumin/Globulin Ratio Urine Opiates Screen Ur Barbiturates Screen Ur Phencyclidine Scrn Ur Amphetamines Screen U Benzodiazepines Scrn Urine Cocaine Screen U Cannabinoids Screen Blood Type Antibody Screen - Measurements Height: 5 ft 0.25 in Weight: 183 lb Weight in lbs: 183.460819 Body Mass Index (BMI): 35.4 Pre- Weight: 157 lb Weight Gained This : 26 lbs and 0 ozs - Exam Breast: Breast Exam Deferred CVA: No CVA Tenderness Extremities: No Edema Heart: Normal Rhythm/Heart Sounds HEENT: No Significant Findings Lungs: Clear Bilaterally Rectal: Rectal Exam Deferred Reflexes: DTR 2+ Thyroid: No Thyromegaly - Abdominal Exam Abdomen Exam: Non-Tender - Ultrasound/Biophysical Profile Ultrasound Status: Not Done Targeted Exam Findings Estimated Weight: 6#8pz Cervical Exam: Fingertip Effacement: 50% Station: -3 Presenting Part: Vertex Membrane Status: Intact Bleeding/Discharge: None EFM Findings - External Monitor Findings Baseline Heart Rate: 130 External Monitor Findings: Accelerations Present, No Pattern of Variable or Late Decelerations, Variability Moderate, Baseline Stable External Monitor Findings Comment: Reactive NST Contractions: Irregular, < 45 Seconds - irritability Assessment/Plan - Assessment 34 y/o at 37w0d by 1st trimester USN here for IOL 2/2 PreEclampsia WITHOUT SF: Elevated BP's in the 3rd trimester, 24 hour Urine Protein 305; no severe range BP's, pt is asymptomatic - Obstetrical Risk Factors Obstetrical Risk Factors: PreEclampsia - Plan Plan: Induction Plan Comment: Cervidil placed at 9:15am GBS negative RH+/Rubella Immune - Date/Time of Admission Date of Admission: 10/14/19 Time of Admission: 08:00
--- NOTE | 2019-10-14 12:23 | PN ---
Progress Note - Progress Note Date of Service: 10/14/19 Note: Tachysystole on toco, Cervidil removed at 1047am. Cervix unchanged. Contractions now spacing out, but still q 2 minutes. FHT is category I with moderate variability, +accels, no decels. BP's are normotensive. Pt remains asymptomatic. Morphine 2mg and 12.5 Phenergan for pain/nausea. Will expectantly manage. Devin Fitzgerald, DO [place]
[2019-10-14] MEDS ORDERED: Oxytocin in LR* 20 UNITS/1,000 ML BAG IVPB ONE (19:15)
--- NOTE | 2019-10-14 19:17 | PN ---
Progress Note - Progress Note Date of Service: 10/14/19 Note: 34 y/o Para 1 here for IOL at 37w0d secondary to PreEclampsia without SF. BP's normotensive with the exception of rare mild range BP, pt remains asymptomatic. Cervidil placed at 915 am --> removed at 10:45 am secondary to tachysystole. Cervix re-examined at ~ 7pm and pt is 1-2cm/50%/-3. Contractions have spaced out and patient is no longer tachysystole. Discussed continued expectant management versus augmentation with Pitocin or placement of Transcervical balloon. Will avoid additional prostaglandins has pt appears to be very sensitive to them. Pt declines transcervical balloon and expectant management. Agrees to augmentation with low dose pitocin. FHT is reactive and reassuring with moderate variabilty and baseline of 130bpm, no decelerations. OK for additional Morphine 2mg and Phenergen as needed. Devin Fitzgerald, DO LIN
[2019-10-15] MEDS ORDERED: OBEPIDURAL* 250 ML EPIDURAL ONE (02:51)
[2019-10-15] MEDS ORDERED: Lactated Ringers 1000 ML Bag* 500 ML IV PRN ×2 (03:37)
[2019-10-15] MEDS ORDERED: Lactated Ringers 1000 ML Bag* 1,000 ML IV ONE (03:37)
[2019-10-15] MEDS ORDERED: Sodium Citrate/Citric Acid* 15 ML UDC PO PRN (03:37)
[2019-10-15] MEDS ORDERED: Famotidine TAB* 20 MG PO PRN (03:37)
[2019-10-15] MEDS ORDERED: Phenylephrine 40 MCG/ML SYRINGE IV PUSH PRN ×2 (03:37)
[2019-10-15] MEDS ORDERED: Lactated Ringers 1000 ML Bag* 1,000 ML IV SCH (04:00)
[2019-10-15] MEDS ORDERED: OBEPIDURAL* 250 ML EPIDURAL SCH (04:00)
--- NOTE | 2019-10-15 06:51 | PN ---
Progress Note - Progress Note Date of Service: 10/15/19 Note: Pt has been on Pitocin overnight. Comfortable status post epidural. BP's have been normotensive and patient is asymptomatic, no signs sx of severe features. FHT 135/moderate/+accels/no decels Contractions q 3-5 minutes Cervix is 3cm/50%/-3 Will continue to titrate pit, will consider temporary stop in Pit to allow Pitocin receptors to re-charge if no change on next exam. Devin Fitzgerald, DO [place]
[2019-10-15] MEDS: Cetirizine* 10 MG TAB PO SCH (06:53)
[2019-10-15] MEDS ORDERED: diPHENhydraMINE PO* 25 MG PO ONE (08:43)
[2019-10-15] MEDS ORDERED: diPHENhydraMINE PO* 25 MG ONE (08:46)
--- NOTE | 2019-10-15 09:47 | PN ---
Progress Note - Progress Note Date of Service: 10/15/19 Note: Pt remains comfortable with epidural. Re-examined and still 2cm/50%/-3. FHT 135/moderate/+accels/no decels Contractions q 3-5 minutes. Discussed options moving forward. Pt agrees to transcervical cooks balloon. Balloon placed at 925am with 80/80 of NS. Pitocin turned off temporarily to rest Pitocin receptors, will re-start at ~ 2 hours. Pt tolerated balloon placement well. BP is normotensive. Pt is asymptomatic. UOP is excellent. Devin Fitzgerald, DO LIN
[2019-10-15] MEDS: Famotidine TAB* 20 MG PO SCH (16:18)
--- NOTE | 2019-10-15 17:43 | PN ---
Progress Note - Progress Note Date of Service: 10/15/19 Note: Cooks balloon spontaneously expelled with light traction. Cervix is now 5cm/60%/-2. AROM'd at 5:10pm with copious amounts of clear fluid and good descent of head. FHT 125 with moderate variability, + accels, no decels Mehreen q 3-4 minutes Comfortable with epidural BP's well controlled, no s/sx of severe features Pitocin is at 10mU, continue to titrate per protocol DO DELIA Francois
--- NOTE | 2019-10-15 21:44 | PN ---
Progress Note - Progress Note Date of Service: 10/15/19 Note: Pt more uncomfortable with contractions. Cervix re-assessed, pt remains 5cm/60%/-2, unchanged from previous exam. Pit is at 16mU, and we are continuing to titrate. FHT remains reactive with moderate variability, no decelerations Anesthesia offered to replace epidural, pt unsure if she would like this. When Anesthesia is on floor next, nursing will ask them to speak with patient regarding optimizing pain control. BP's remain normotensive to mild range. No s/sx of SF. Nursing to contine to titrate pitocin and perform maternal repositioning to encourage descent. Devin Fitzgerald, OBGYN
[2019-10-15] MEDS ORDERED: Bupivacaine 0.25% SDV PF* 10 ML VIAL INJ ONE (21:45)
[2019-10-15] MEDS: Ondansetron INJ* 2 MG/ML VIAL IV PRN (22:19)
[2019-10-16] MEDS ORDERED: Oxytocin in LR* 20 UNITS/1,000 ML BAG IVPB SCH (01:00)
[2019-10-16] MEDS: Promethazine INJ(RESTRICTED)* 25 MG/ML 1 ML VIAL IV PRN (02:31)
[2019-10-16] MEDS: Ondansetron INJ* 2 MG/ML VIAL IV PRN (04:16)
--- NOTE | 2019-10-16 06:29 | PN ---
Progress Note - Progress Note Date of Service: 10/16/19 Note: Pt re-examined this AM. Cervix is now a soft anterior lip. Attempted to reduce with pushing, but lip would not remain reduced. FHT is 130/moderate/+accels/no decels Contractions are q 3-4 minutes. BP's are normotensive, pt is asymptomatic. Will place mom in throne position in an attempt to help reduce anterior lip. Re- assess shortly. Devin Fitzgerald, DO LIN
[2019-10-16] MEDS ORDERED: Oxytocin in LR* 20 UNITS/1,000 ML BAG IVPB ONE ×2 (07:23→07:30)
[2019-10-16] MEDS ORDERED: Glycerin ADULT SUPP PR PRN (07:44)
[2019-10-16] MEDS ORDERED: Dibucaine 1% 28.35 GM TUBE PR PRN (07:44)
[2019-10-16] MEDS ORDERED: Witch Hazel PAD* JAR TOPICAL PRN (07:44)
[2019-10-16] MEDS ORDERED: Lactated Ringers 1000 ML Bag* 1,000 ML IV SCH (08:00)
[2019-10-16] MEDS ORDERED: Simethicone TAB* 80 MG TAB.CHEW PO SCH (08:30)
[2019-10-16] MEDS: Ibuprofen TAB* 600 MG PO PRN ×3 (08:48→22:50)
[2019-10-16] MEDS: Docusate CAP* 100 MG PO SCH ×3 (08:48→20:41)
[2019-10-16] MEDS: Cetirizine* 10 MG TAB PO SCH (08:48)
[2019-10-16] MEDS ORDERED: Lidocaine 1% INJ* 10 MG/ML 30 ML SDV ONE (10:01)
[2019-10-16] MEDS: Acetaminophen TAB* 325 MG PO PRN ×3 (10:43→20:42)
--- NOTE | 2019-10-16 12:33 | PROCNOTE ---
[facility] OB: Delivery Note - Delivery A Date of : 10/16/19 Time of : 07:17 [place] Sex: Female Weight at : 7 lb 10 oz Score 1 Minute: 9 Score 5 Minutes: 9 Gestational Age in Weeks and Days at Delivery: 37 Weeks and 2 Days Delivery Method: Spontaneous Vaginal Labor: Induced Amniotic Fluid: Clear Estimated Blood Loss: 300 Anesthesia/Analgesia: CEI for Labor Delivered By: Aries Fitzgerald JR - Nursery Level of Nursery: Regular/Bedside - Perineum Perineal Injury: Periurethral Laceration - small periurethral abrasion, hemostatic, no repair indicated, Perineal Laceration, 1st Degree Perineal Injury Comment: 1st degree perineal laceration repaired with Vicryl rapide Perineal Repair: By Delivering Practioner - Events Delivery Events of Note: Pitocin During Labor, ROM > 24 Hours - Additional Delivery Notes Additional Delivery Notes: IOL at 37 weeks for mild preEclampsia Cervidil --> Pitocin --> Cooks Balloon --> AROM --> Pitocin ~48 hour IOL Uncomplicated vaginal delivery in [facility] DO DELIA Francois
[2019-10-16] MEDS ORDERED: Acetaminophen TAB* 325 MG ONE (17:00)
[2019-10-16 21:43] VITALS: BP 136/82
[2019-10-16] MEDS: Famotidine TAB* 20 MG PO SCH (22:53)
[2019-10-17] MEDS: Acetaminophen TAB* 325 MG PO PRN ×2 (02:44→08:05)
[2019-10-17] MEDS: Ibuprofen TAB* 600 MG PO PRN (05:12)
[2019-10-17 05:41] LABS: ABS Eosinophils 0.3 10^3/ul (0-0.6); ABS Lymphocytes 2.6 10^3/ul (1.0-4.8); ABS Monocytes 0.8 10^3/ul (0-0.8); ABS Neutrophils 7.1 10^3/ul (1.5-7.7); Eosinophil % 2.3 %; Hematocrit 26 % (35-47); Hemoglobin 8.8 g/dL (12.0-16.0); Lymphocyte % 23.9 %; Mean Corpuscular HGB Conc 34 g/dL (31-36); Mean Corpuscular Hemoglobin 27 pg (27-31); Mean Corpuscular Volume 80 fL (80-97); Mean Platelet Volume 8.5 fL (7.4-10.4); Platelet Count 197 10^3/uL (150-450); Red Blood Count 3.23 10^6 /uL (3.70-4.87); Red Cell Distribution Width 17 % (10-15); White Blood Count 10.8 10^3/uL (3.5-10.8)
[2019-10-17] MEDS: Famotidine TAB* 20 MG PO SCH (08:04)
[2019-10-17] MEDS: Docusate CAP* 100 MG PO SCH (08:05)
[2019-10-17] MEDS: Cetirizine* 10 MG TAB PO SCH (08:05)
[2019-10-17] MEDS ORDERED: Ferrous Gluconate TAB* 324 MG TAB PO SCH (09:00)
== END 2019-10-17 12:25 | disposition home or self-care (01) | DRG 560 ==
LOC: MCHOBOUT 07:57 → MCHOB 08:49
PROVIDERS: ADMIT Obstetrics & Gynecology; ATTEND Obstetrics & Gynecology
PROC: 4A1HXCZ Monitoring of Products of Conception, Cardiac Rate, External Approach (ICD-10-PCS; 2019-10-14)
PROC: 3E0P7VZ Introduction of Hormone into Female Reproductive, Via Natural or Artificial Opening (ICD-10-PCS; 2019-10-14)
PROC: 3E033VJ Introduction of Other Hormone into Peripheral Vein, Percutaneous Approach (ICD-10-PCS; 2019-10-14)
PROC: 10907ZC Drainage of Amniotic Fluid, Therapeutic from Products of Conception, Via Natural or Artificial Opening (ICD-10-PCS; 2019-10-15)
PROC: 0U7C7ZZ Dilation of Cervix, Via Natural or Artificial Opening (ICD-10-PCS; 2019-10-15)
PROC: 10E0XZZ Delivery of Products of Conception, External Approach (ICD-10-PCS; principal; 2019-10-16)
PROC: 0HQ9XZZ Repair Perineum Skin, External Approach (ICD-10-PCS; 2019-10-16)
DX: O14.04 Mild to moderate pre-eclampsia, complicating childbirth (principal); Z37.0 Single live birth; O71.82 Other specified trauma to perineum and vulva; O70.0 First degree perineal laceration during delivery; Z3A.37 37 weeks gestation of pregnancy; Z88.2 Allergy status to sulfonamides; Z88.8 Allergy status to other drugs, medicaments and biological substances
CPT/HCPCS: 36415; 80053; 80307; 84550; 85025; 86850; 86900; 86901; A9270-GY; J2270; J2405; J2550; J3490

== ENCOUNTER 2021-03-19 17:58 | Inpatient (IN) ==
[2021-03-19] MEDS ORDERED: Dinoprostone 10 MG VAG.SUPP VAGINAL ONE (19:41)
[2021-03-19] MEDS ORDERED: Buffered Lidocaine 1% SYRIN 1 ml INTRADERM ONE (19:41)
[2021-03-19] MEDS ORDERED: Lactated Ringers 1000 ml BAG 1,000 ML IV ONE (19:41)
[2021-03-19 22:48] LABS: ABS Eosinophils 0.2 10^3/ul (0-0.6); ABS Lymphocytes 2.1 10^3/ul (1.0-4.8); ABS Monocytes 0.8 10^3/ul (0-0.8); ABS Neutrophils 5.8 10^3/ul (1.5-7.7); Eosinophil % 1.7 %; Hematocrit 27 % (35-47); Hemoglobin 8.7 g/dL (12.0-16.0); Lymphocyte % 23.7 %; Mean Corpuscular HGB Conc 32 g/dL (31-36); Mean Corpuscular Hemoglobin 23 pg (27-31); Mean Corpuscular Volume 72 fL (80-97); Mean Platelet Volume 9.1 fL (7.4-10.4); Nucleated Red Blood Cells % 0.1; Platelet Count 248 10^3/uL (150-450); Red Blood Count 3.78 10^6 /uL (3.70-4.87); Red Cell Distribution Width 18 % (10-15); White Blood Count 8.9 10^3/uL (3.5-10.8)
[2021-03-19 22:58] LABS: Calcium 8.9 mg/dL (8.6-10.3); EGFR African American 138.8 (>60); EGFR Non-African American 114.7 (>60); Potassium 3.6 mmol/L (3.5-5.0); Total Bilirubin 0.3 mg/dL (0.2-1.0)
[2021-03-19 23:00] LABS: Urine Benzodiazepine Screen None Detected (None Detect); Urine Cannabinoids Screen None Detected (None Detect); Urine Opiates Screen None Detected (None Detect)
[2021-03-20] MEDS ORDERED: Morphine 10 MG/ML VIAL (1 ml) IV ONE ×2 (04:47→21:37)
[2021-03-20] MEDS ORDERED: Promethazine INJ(RESTRICTED) 25 MG/ML 1 ml VIAL IV ONE (04:47)
[2021-03-20] MEDS ORDERED: Promethazine INJ(RESTRICTED) 25 MG/ML 1 ml VIAL ONE ×2 (05:04→05:08)
[2021-03-20] MEDS ORDERED: Morphine 10 MG/ML VIAL (1 ml) ONE (05:08)
[2021-03-20] MEDS ORDERED: Dinoprostone 10 MG VAG.SUPP VAGINAL ONE (08:40)
[2021-03-20] MEDS: Calcium Carb (TUMS) 500 mg CHEW TAB PO PRN ×2 (16:59→20:56)
[2021-03-20] MEDS ORDERED: Promethazine INJ(RESTRICTED) 25 MG/ML 1 ml VIAL IV PRN (21:38)
[2021-03-21] MEDS: Lactated Ringers 1000 ml BAG 1,000 ML IV SCH ×3 (01:27→06:01)
[2021-03-21] MEDS ORDERED: OBEPIDURAL 250 ML EPIDURAL ONE (01:39)
[2021-03-21] MEDS ORDERED: Bupivacaine 0.25% SDV PF 10 ML VIAL INJ ONE ×2 (01:40→02:10)
[2021-03-21] MEDS ORDERED: Lactated Ringers 1000 ml BAG 1,000 ML IV ONE (01:57)
[2021-03-21] MEDS ORDERED: Phenylephrine 40 mcg/mL 10mL (400mcg) SYRINGE IV PUSH PRN ×2 (01:57)
[2021-03-21] MEDS ORDERED: Sodium Citrate/Citric Acid LIQ 15 ML UDC PO PRN (01:57)
[2021-03-21] MEDS ORDERED: Lactated Ringers 1000 ml BAG 1,000 ML IV SCH ×2 (02:00→11:00)
[2021-03-21] MEDS ORDERED: OBEPIDURAL 250 ML EPIDURAL SCH (02:00)
[2021-03-21 03:14] LABS: Urine Appearance Turbid; Urine Bilirubin Negative (Negative); Urine Blood Negative (Negative); Urine Color Yellow; Urine Glucose Negative (Negative); Urine Ketones Negative (Negative); Urine Nitrite Negative (Negative); Urine Protein 1+(30 mg/dL) (Negative); Urine Specific Gravity 1.016 (1.002-1.030); Urine Urobilinogen Negative (Negative)
[2021-03-21 03:20] LABS: Urine Bacteria Absent (Absent); Urine Red Blood Cell Absent (Absent); Urine Squamous Epithelial Cell Present (Absent); Urine White Blood Cell Absent (Absent)
[2021-03-21] MEDS ORDERED: [UNRECOGNIZED DRUG - OTHER] IVPB SCH (03:28)
[2021-03-21] MEDS ORDERED: OXYTOCIN IVPB SCH (03:28)
[2021-03-21] MEDS ORDERED: Metoclopramide 5 MG/ML VIAL (10 mg) IV ONE (04:02)
[2021-03-21] MEDS ORDERED: Ondansetron 4 mg VIAL 2 MG/ML 2 ml VIAL IV ONE (04:02)
[2021-03-21] MEDS ORDERED: Dibucaine 1% OINT 28.35 GM TUBE PR PRN (10:08)
[2021-03-21] MEDS ORDERED: Glycerin ADULT 2.4 gm SUPP PR PRN (10:08)
[2021-03-21] MEDS ORDERED: Witch Hazel PAD JAR TOPICAL PRN (10:08)
[2021-03-21] MEDS ORDERED: Oxytocin in LR 20 UNITS/1,000 ML BAG IVPB SCH (11:00)
[2021-03-21] MEDS ORDERED: Lidocaine 1% VIAL 10 MG/ML VIAL ONE (15:15)
[2021-03-21] MEDS ORDERED: Phenylephrine IV 10 MG/ML 1 ml VIAL ONE (15:16)
[2021-03-21] MEDS: Calcium Carb (TUMS) 500 mg CHEW TAB PO PRN (16:27)
[2021-03-22 08:23] VITALS: BP 119/79
[2021-03-22 08:36] LABS: ABS Basophils 0.1 10^3/ul (0-0.2); ABS Eosinophils 0.3 10^3/ul (0-0.6); ABS Lymphocytes 2.1 10^3/ul (1.0-4.8); ABS Monocytes 0.6 10^3/ul (0-0.8); ABS Neutrophils 6.5 10^3/ul (1.5-7.7); Eosinophil % 2.9 %; Hematocrit 27 % (35-47); Hemoglobin 8.7 g/dL (12.0-16.0); Lymphocyte % 21.9 %; Mean Corpuscular HGB Conc 32 g/dL (31-36); Mean Corpuscular Hemoglobin 23 pg (27-31); Mean Corpuscular Volume 72 fL (80-97); Platelet Count 191 10^3/uL (150-450); Red Blood Count 3.78 10^6 /uL (3.70-4.87); Red Cell Distribution Width 19 % (10-15); White Blood Count 9.5 10^3/uL (3.5-10.8)
== END 2021-03-22 12:25 | disposition home or self-care (01) ==
LOC: MCHOBOUT 17:58 → MCHOB 19:45
PROVIDERS: ADMIT Obstetrics & Gynecology; ATTEND Obstetrics & Gynecology

== ENCOUNTER 2024-01-25 15:34 | Inpatient (IN) ==
[2024-01-25] MEDS ORDERED: Buffered Lidocaine 1% SYRIN 1 ml INTRADERM ONE ×2 (16:15→17:20)
[2024-01-25] MEDS ORDERED: Prochlorperazine 5 mg/ml 2 ml VIAL (10 mg) IV PRN ×2 (16:15→17:20)
[2024-01-25] MEDS ORDERED: Nalbuphine 10 MG/ML 1 ML VIAL IV PRN (16:15)
[2024-01-25] MEDS ORDERED: Lidocaine 1% VIAL 10 MG/ML 30 ML VIAL INJ PRN (17:20)
[2024-01-25] MEDS ORDERED: Lactated Ringers 1000 ml BAG 1,000 ML IV SCH (18:00)
[2024-01-25] MEDS: Lactated Ringers 1000 ml BAG 1,000 ML IV ONE (18:24)
[2024-01-25] MEDS: Oxytocin in LR 20,000 MILLI.UNIT/1,000 ML BAG IV SCH (18:25)
[2024-01-25 18:27] LABS: Urine Benzodiazepine Screen None Detected (None Detect); Urine Cannabinoids Screen None Detected (None Detect); Urine Opiates Screen None Detected (None Detect)
[2024-01-25 19:01] LABS: Hematocrit 32.9 % (35-45); Hemoglobin 10.7 g/dL (11.5-14.3); Mean Corpuscular Hemoglobin 25.2 pg (27-33); Mean Corpuscular Hgb Conc 32.6 g/dL (31-36); Mean Corpuscular Volume 77.2 fL (80-97); Red Blood Count 4.26 10^6/uL (3.63-4.92); Red Cell Distribution Width 16.5 % (12-17)
[2024-01-25 19:25] LABS: ABS Basophils 0.2 10^3/uL (0.0-0.1); ABS Eosinophils 0.1 10^3/uL (0.0-0.5); ABS Lymphocytes 2.3 10^3/uL (1.0-4.8); ABS Monocytes 0.8 10^3/uL (0.0-0.9); ABS Neutrophils 7.7 10^3/uL (1.5-7.6); ABS Nucleated RBC 0.02 10^3/ul; Eosinophil % 1.4 %; Nucleated Red Blood Cells % 0.2 %/100WBC (0.0-0.8); Platelet Count 284 10^3/uL (150-450)
[2024-01-25] MEDS: OBEPIDURAL (200 ML) 200 ML EPIDURAL ONE (23:52)
[2024-01-26] MEDS ORDERED: Bupivacaine 0.25% SDV PF 10 ML VIAL INJ ONE (00:45)
[2024-01-26] MEDS ORDERED: Sodium Citrate/Citric Acid LIQ 15 ML UDC PO PRN (01:23)
[2024-01-26] MEDS ORDERED: Phenylephrine 40 mcg/mL 10mL (400mcg) SYRINGE IV PUSH PRN ×2 (01:23)
[2024-01-26 02:03] LABS: Urine Appearance Clear; Urine Bilirubin Negative (Negative); Urine Blood Negative (Negative); Urine Color Light-Yellow; Urine Glucose Negative (Negative); Urine Ketones Negative (Negative); Urine Nitrite Negative (Negative); Urine Protein Negative (Negative); Urine Specific Gravity 1.018 (1.002-1.030); Urine Urobilinogen Negative (Negative); Urine pH 7.5 (5.0-8.0)
[2024-01-26] MEDS: Oxytocin 10 UNITS/ML 1 ML VIAL IM ONE (02:50)
[2024-01-26] MEDS ORDERED: Glycerin ADULT 2.4 gm SUPP PR PRN (02:55)
[2024-01-26] MEDS ORDERED: Lactated Ringers 1000 ml BAG 1,000 ML IV SCH (03:00)
[2024-01-26] MEDS: HYDROmorphone 1 MG/1 ML SYRINGE IV SLOW PU ONE (06:25)
[2024-01-26] MEDS: Lidocaine 1.5% EPI 1:200,000 30 ML SDV ONE (06:26)
[2024-01-26] MEDS: fentaNYL 100 mcg/2 ml 50 MCG/ML VIAL ONE (06:26)
[2024-01-26] MEDS: OBEPIDURAL (200 ML) 200 ML EPIDURAL SCH (06:27)
[2024-01-26] MEDS: Lactated Ringers 1000 ml BAG 1,000 ML IV ONE (06:28)
[2024-01-26] MEDS: Witch Hazel PAD JAR TOPICAL PRN (07:06)
[2024-01-26] MEDS: Dibucaine 1% OINT 28.35 GM TUBE PR PRN (07:06)
[2024-01-27 06:35] LABS: ABS Eosinophils 0.2 10^3/uL (0.0-0.5); ABS Lymphocytes 2.4 10^3/uL (1.0-4.8); ABS Monocytes 0.6 10^3/uL (0.0-0.9); ABS Neutrophils 3.8 10^3/uL (1.5-7.6); ABS Nucleated RBC 0.01 10^3/ul; Eosinophil % 3.4 %; Hematocrit 26.4 % (35-45); Hemoglobin 8.6 g/dL (11.5-14.3); Lymphocyte % 34.2 %; Mean Corpuscular Hgb Conc 32.6 g/dL (31-36); Mean Corpuscular Volume 76.6 fL (80-97); Mean Platelet Volume 8.2 fL (7.5-11.2); Nucleated Red Blood Cells % 0.2 %/100WBC (0.0-0.8); Platelet Count 206 10^3/uL (150-450); Red Blood Count 3.45 10^6/uL (3.63-4.92); Red Cell Distribution Width 16.5 % (12-17); White Blood Count 7.1 10^3/uL (3.8-11.8)
[2024-01-27 08:21] VITALS: BP 121/82
== END 2024-01-27 12:27 | disposition home or self-care (01) | DRG 560 ==
LOC: MCHOBOUT 15:34 → MCHOB 17:08
PROVIDERS: ADMIT Obstetrics & Gynecology; ATTEND Obstetrics & Gynecology